=== PATIENT | female | born 1980 | race American Indian/Alaskan Native ===

== ENCOUNTER 2017-06-24 08:34 | Day surgery (SDC) | payer BC ==
[2017-06-24 08:59] VITALS: BMI 35.8
[2017-06-24] MEDS ORDERED: Propofol 10 mg/ml Inj (20 ML) ONE ×2 (11:10→11:29)
[2017-06-24] MEDS ORDERED: Lidocaine Hydrochloride 5 ML INJ ONE (11:25)
[2017-06-24] MEDS ORDERED: Lactated Ringer's 500 ML IV SCH (11:30)
[2017-06-24 12:34] VITALS: RESP 12; O2SAT 98
[2017-06-24 12:41] VITALS: BP 104/59; PULSE 69; TEMP 97.6
== END 2017-06-24 12:35 | disposition home or self-care (01) ==
LOC: C.ENDO 08:34
PROVIDERS: ATTEND Internal Medicine Gastroenterology
DX: K29.70 Gastritis, unspecified, without bleeding (principal); R10.13 Epigastric pain; K29.80 Duodenitis without bleeding
CPT/HCPCS: 43239; 84703; 88305; J2704; J7120